=== PATIENT | male | born 1970 | race African-American/Black ===

== ENCOUNTER → 2022-07-13 14:50 | Outpatient (BNVA) | payer MEDICAID, SELFPAY | PROVIDERS: PCP Internal Medicine; Visit Provider Surgery Vascular Surgery | DX: I73.9 Peripheral vascular disease, unspecified (principal) | CPT/HCPCS: 99202 ==

== ENCOUNTER 2022-08-02 06:00 | Day surgery (SDC) | payer MEDICAID, SELFPAY ==
[2022-08-02] VITALS (8 sets, daily range): BP systolic 112–146; BP diastolic 65–85; PULSE 61–73; RESP 17–20; TEMP 36.3–36.5; O2SAT 98–100; BMI 27.8
[2022-08-02] MEDS: 0.9 % Sodium Chloride 1,000 ML 100 ML IVCONT (06:38)
[2022-08-02 06:46] LABS: Basophils Absolute Auto 0.1 X10*3/uL (0.0-0.2); Basophils Percent Auto 0.5 % (0-2); Eosinophils Absolute Auto 0.4 X10*3/uL (0.0-0.4); Hematocrit 42.3 % (42.0-52.0); Hemoglobin 13.9 g/dl (14.0-18.0); Imm Gran Abs Auto 0.05 X10*3/uL (0.00-0.03); Imm Gran Pct Auto 0.4 % (0.0-0.4); Lymphocytes Absolute Auto 3.4 X10*3/uL (1.2-4.9); Lymphocytes Percent Auto 26.9 % (20-40); MANUAL DIFF FLAG NO; Mean Corpuscular HGB Conc 32.9 g/dl (31.0-36.0); Mean Corpuscular Hemoglobin 27.6 pg (27.0-33.0); Mean Corpuscular Volume 83.9 fL (80.0-98.0); Mean Platelet Volume 10.8 fL (9.4-12.4); Monocytes Absolute Auto 0.9 X10*3/uL (0.1-1.2); Monocytes Percent Auto 7.3 % (2-11); Neutrophils Absolute Auto 7.7 x10*3/uL (2.0-8.3); Neutrophils Percent Auto 61.9 % (45-73); Platelet Count 258 X10*3/uL (160-400); Red Blood Count 5.04 X10*6/uL (4.60-5.80); Red Cell Distribution Width 13.4 % (11.0-16.0); White Blood Count 12.5 X10*3/uL (4.8-10.8)
[2022-08-02 06:57] LABS: Blood Urea Nitrogen 15 mg/dL (9-16); Creatinine Clr Calc Pharmacy 115.7; Estimated Glomerular Filt Rate > 60
--- NOTE | 2022-08-02 09:35 | W.PM.OPN ---
Operative Note Operative Note Date of Service: 08/02/22 Narrative: Angiogram report from [facility] Preoperative diagnosis: Atherosclerosis of right lower extremity with activity limiting claudication Postoperative diagnosis: Same Procedure: 1. Ultrasound-guided left common femoral access 2. Aortogram with right lower extremity runoff 3. Right anterior tibial atherectomy and plasty 4. Right popliteal atherectomy and plasty 5. Right SFA angioplasty and stent Surgeon:Fortino Bosch M.D., FACS, RPVI Blasting Contract Miner:None Anesthesia: Local with moderate conscious sedation. Total intraservice moderate sedation time was 69 minutes. I monitored the patient's level of consciousness and physiologic status continuously throughout the procedure. Specimens:none Drains:none Estimated blood loss: Less than 10 ml Implant: Medtronic Ev 3 stent 6 x 40; Medtronic Impact DCB 4 x 60 Indications: Pleasant 52-year-old gentleman with a history of smoking presents with severe activity limiting claudication. This was demonstrated on noninvasive testing. He now presents for endovascular intervention. The patient has signed the informed consent after reviewing risks, complications, benefits, and alternatives previously discussed with the patient. The patient was given the opportunity to ask any additional questions or voice any concerns. All questions were answered to the patient's satisfaction. Procedure in detail: Patient was brought to the angiography suite prior to which a time-out was called for patient identification and site verification. Bilateral groins were prepped and draped in the standard surgical fashion. Under ultrasound guidance left common femoral was punctured with micro puncture needle and wire. Subsequently a precision 4 Stateless sheath was then placed. Bentson wire was advanced to the level of the aorta. 4 Stateless Flush catheter was brought up and parked at the level of the renal arteries. Aortogram was then undertaken. Catheter was brought down to the level of the iliac bifurcation. Iliacs were subsequently imaged. Catheter was then brought in up and over to the right side SFA. Runoff study was then undertaken. This time we recognize there is a total popliteal occlusion. We used an 035 glidewire Advantage to traverse this lesion. We were able to get across and get into the anterior tibial. We confirmed this with a now be cross catheter instilled with contrast. At this time we administered 7000 units a heparin. After 5 minutes of circulation time we placed an up and over 6 Stateless sheath. We then exchanged out for a 5. Spider wire. This was placed into the anterior tibial artery. We then brought in a a 6 Stateless Hawk 1 atherectomy device. Multiple unidirectional passes were taken through the popliteal and on into the anterior tibial artery. Several passes of this had to be undertaken and once again these were all unidirectional passes. Once this was all accomplished we did obtain a fairly good result. There was still some mild residual stenosis. This was then plasty did with a drug coated balloon a 4 x 60. This was brought into position in under 3 minutes and insufflated for a total of 3 minutes in duration. Completion demonstrated spasm of vessels. This was observed for several minutes. Another 1000 units of heparin was then administered. We then turned our attention to Remi's canal. There was a high-grade calcified stenosis there. This was 1st plasty did with a 6 x 20 balloon. The balloon popped. It was subsequently removed. We then brought in a 6 x 40 stent. And once this was deployed we then post plasty this with a 6 x 40 balloon. Once this was all accomplished completion angiogram demonstrated good result with resolution of the vessel spasm. Catheter wire sheath was brought back to the ipsilateral side StarClose closure device was then deployed. Interpretation of films: 1. Ultrasound demonstrates appropriate femoral puncture. Image of which was saved. 2. Aortogram demonstrates appropriate caliber aorta. Minimal disease. Appropriate take-off of the renals. 3. Iliac images demonstrate no significant disease 4. Right Leg Common femoral artery: No significant disease Profundus Femoris: No significant disease Superficial femoral artery: High-grade stenosis at Remi's canal Popliteal artery (p1,p2,p3): Occlusion; postprocedure patent Anterior tibial artery: Occluded proximally postprocedure patent Peroneal artery: Reconstituted via collateral in the proximal quarter Posterior tibial artery: Reconstituted via collaterals in the proximal core Dorsalis pedis/plantar arch: Incomplete Conclusion: 1. Successful atherectomy and plasty of right popliteal and anterior tibial. Successful plasty and stent of right SFA. 2. Anticoagulation status: Patient will require aspirin and Plavix for 6 months. This note is constructed using voice recognition software. While every effort has been made to ensure accuracy, assistant mechanic errors may have been included. Thank you for allowing me to participate in the care of your patient. Yours sincerely, Fortino Bosch MD, FACS, R.P.V.I.
[2022-08-02] MEDS: Clopidogrel Bisulfate 300 MG TABLET PO (09:43)
== END 2022-08-02 11:36 | disposition home or self-care (01) ==
PROVIDERS: PCP Internal Medicine; Visit Provider Surgery Vascular Surgery
DX: I70.211 Atherosclerosis of native arteries of extremities with intermittent claudication, right leg (principal); M79.661 Pain in right lower leg; F17.210 Nicotine dependence, cigarettes, uncomplicated
CPT/HCPCS: 36415; 37225; 37227; 37228; 37229; 76937; 82565; 84520; 85025; 99152; 99153; C1714; C1725; C1760; C1769; C1876; C1884; C1887; J2250; J3010; Q9967

== ENCOUNTER → 2022-08-15 09:41 | Outpatient (BNVA) | payer MEDICAID, SELFPAY | PROVIDERS: PCP Internal Medicine; Visit Provider Surgery Vascular Surgery | DX: I73.9 Peripheral vascular disease, unspecified (principal); Z95.820 Peripheral vascular angioplasty status with implants and grafts | CPT/HCPCS: 99212 ==

== ENCOUNTER 2022-12-27 13:56 | Outpatient (REF) | payer MEDICAID, SELFPAY ==
--- NOTE | ~2022-12-27 | US_ITS ---
EXAMINATION: NONINVASIVE ASSESSMENT OF THE ARTERIES OF BOTH LOWER EXTREMITIES CLINICAL INFORMATION: PVD. COMPARISON: None. TECHNIQUE: Segmental ankle pulse volume recording, pressure measurement at the ankle and ankle brachial indices were obtained of the lower extremity arterial system bilaterally. In addition, bilateral lower extremity duplex ultrasound was performed with velocity measurements and waveform analysis in the common femoral arteries, profunda femoris arteries, proximal mid and distal superficial femoral arteries, popliteal arteries and tibial vessels. This study was performed at rest only. FINDINGS: a) AT REST: 1. The ankle-brachial indices are: Right 0.84 and left 0.87. >0.97-1.25 = normal - no significant arterial disease. 0.75-0.96 = mild peripheral arterial disease. 0.5-0.74 = moderate peripheral arterial disease. <0.50 = severe peripheral arterial disease. 2. Segmental pressure at ankle: Slightly decreased. 3. PVR waveform at ankle: Minimally blunted. 4. Duplex exam. Velocities in cm/sec and phasicity as well as the presence of plaque are reported below. RIGHT LEG: Plaque is present with a patent stent in the distal SFA. Triphasic flow noted in the common femoral and profunda femoris arteries with monophasic flow noted below. Common Femoral: 126 Profunda Femoris: 162 Proximal SFA: 125 Mid SFA: 158 Distal SFA: Stent with velocities ranging from 161-200 with monophasic flow proximally and triphasic flow distally. Popliteal: 77 Tibial: 77 LEFT LEG: Plaque is present with monophasic flow noted throughout suggesting the possibility of inflow disease. Common Femoral: 108 Profunda Femoris: 84 Proximal SFA: 67 Mid SFA: 207 Distal SFA: 81 Popliteal: 62 Tibial: 82 US/US arterial duplex LE BI IMPRESSION: By IAN criteria, there is mild peripheral vascular disease bilaterally. On the right, the SFA stent is patent. Triphasic flow noted in the common femoral and profunda femoris with monophasic flow noted below. On the left, plaque is present with monophasic flow noted throughout suggesting inflow disease. The mid SFA stenosis is seen with velocity acceleration to 207 cm/s. CT angiography may be useful for further evaluation.
== END 2022-12-27 13:57 | disposition home or self-care (01) ==
LOC: HO.US 13:56
PROVIDERS: Visit Provider Surgery Vascular Surgery
DX: I70.213 Atherosclerosis of native arteries of extremities with intermittent claudication, bilateral legs (principal)
CPT/HCPCS: 93923; 93925

== ENCOUNTER → 2023-01-04 09:59 | Outpatient (BNVA) | payer MEDICAID, SELFPAY | PROVIDERS: PCP Internal Medicine; Visit Provider Surgery Vascular Surgery | DX: I73.9 Peripheral vascular disease, unspecified (principal); U07.0 Vaping-related disorder; F17.210 Nicotine dependence, cigarettes, uncomplicated; Z98.890 Other specified postprocedural states | CPT/HCPCS: 99212 ==

== ENCOUNTER 2023-05-08 10:06 | Outpatient (REF) | payer MEDICAID, SELFPAY | END 2023-05-08 10:07 | disposition home or self-care (01) | LOC: HO.US 10:06 | PROVIDERS: PCP Internal Medicine; Visit Provider Surgery Vascular Surgery | DX: I70.213 Atherosclerosis of native arteries of extremities with intermittent claudication, bilateral legs (principal) | CPT/HCPCS: 93923; 93925 ==

== ENCOUNTER 2023-06-12 13:01 | Outpatient (AMB) | payer MEDICAID, SELFPAY ==
--- NOTE | 2023-06-12 13:02 | A.OFFVIS_ITS ---
Intake Intake Visit Reasons: 6 m f/u S/P arterial US 05/08/23 (pain stent area) Intake Note: 6 mo follow up s/p Arterial US 05/08/23 w/ Hx of RIght Angio 08/02/22. Accompanied by: Self / Same As Patient Allergies No Known Allergies Allergy (Verified 06/12/23 13:07) HPI 6 m f/u S/P arterial US 05/08/23 (pain stent area) HPI Details Very pleasant 52-year-old gentleman presents for follow-up with noninvasive arterial testing. He reports that he can ambulate about 15 minutes with no significant difficulty. 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 He now presents for follow-up with noninvasive arterial testing. Of note he is a nondiabetic but continues to vape. [facility] Medical History PAD (peripheral artery disease) Surgical History History of angioplasty (~2021) Social History Patient Tobacco Use Status: Former Tobacco user Quit Date: 08/03/2022 Cigarette Packs Per Day: 0.5 Cigarettes Per Day: 10 Years Smoked: 35 e-Cigarette/Vaping Use: Currently Using Review of Systems Const All systems reviewed & are unremarkable except as noted in HPI and below Reports no additional complaints ENT Reports Normal hearing present Card Denies chest pain, Denies chest pain at rest, Denies chest pain with activity and Denies pedal edema Resp Denies cough GI Denies abdominal pain Musc Denies abnormal gait, Denies muscle cramps and Denies radiating pain into limb Skin/Breast Denies skin ulcer and Denies wounds Neuro Reports Normal hearing present and Denies abnormal gait Psych Reports no additional complaints Physical Exam Const General: cooperative, healthy appearing and comfortable Orientation/consciousness: oriented to person, oriented to place and oriented to time HEENT Head: Yes normal to inspection Neck Neck: Yes normal visual inspection Carotids: no bruits Chest Chest palpation & inspection: normal inspection of the chest Resp Effort & Inspection: normal respiratory effort and able to speak in complete sentences Auscultation: clear to auscultation bilaterally, no crackles, no rales, no rhonchi and no wheezes Cardio Other: Right side palpable DP Rate: regular rate Rhythm: regular rhythm Heart sounds: S1 normal heart sound present and S2 normal heart sound present Bruits: no carotid bruits GI Inspection: Yes normal to inspection Skin Wounds: no wounds Hair: normal Neuro General: oriented to person, oriented to place and oriented to time Cranial nerves: Yes CN's II-XII intact bilaterally and Yes Normal hearing present Cognition (Neuro): normal cognition Motor exam (neuro): 5/5 motor strength present throughout Extrem Other: venous exam: No significant superficial varicosities or spider telangiectasias, minimal edema General: No clubbing, No cyanosis and No edema Psych Appearance: grossly normal Mental Status: mental status grossly normal Speech and movement: Normal speech and movement present Results Reviewed Results Reviewed: Noninvasive arterial testing dated 05/08/2023 demonstrates IAN on the right of 0.97 and on the left of 0.75. Written report and images were reviewed. Assessment & Plan Assessment & Plan (1) PAD (peripheral artery disease): Comment: 08/02/2022 - right SFA angioplasty and stent, right popliteal atherectomy and plasty, right anterior tibial atherectomy and plasty Code(s): I73.9 - Peripheral vascular disease, unspecified Plan: In short patient has stable claudication. I did review the pathophysiology of peripheral vascular disease with the patient. In addition we did discuss routine conservative measures including a healthy diet and the importance of exercise and ambulation. We did discuss risk factor modification. The patient will continue to to follow-up with surveillance follow-up in approximately 1 year. Thank you for allowing us to participate in this patient's care. If there are any questions or concerns please do not hesitate to contact us. Orders: Orders US arterial duplex LE BI 364 Days I73.9 - Peripheral vascular disease, unspecified Coding Level of Care Code Est Pt Level 4 (19142) Diagnoses PAD (peripheral artery disease) I73.9
== END 2023-06-12 13:36 | disposition home or self-care (01) ==
PROVIDERS: PCP Internal Medicine; Visit Provider Surgery Vascular Surgery
DX: I73.9 Peripheral vascular disease, unspecified (principal); Z98.62 Peripheral vascular angioplasty status
CPT/HCPCS: 99213

== ENCOUNTER → 2023-06-12 13:01 | Outpatient (BNVA) | payer MEDICAID, SELFPAY | PROVIDERS: PCP Internal Medicine; Visit Provider Surgery Vascular Surgery ==

== ENCOUNTER 2024-05-20 | Outpatient (REF) | payer MEDICAID, SELFPAY | END 2024-05-20 00:01 | disposition home or self-care (01) | LOC: HO.HHCLNP | PROVIDERS: Visit Provider Family Medicine | DX: Z13.89 Encounter for screening for other disorder (principal) ==

== ENCOUNTER 2024-05-28 08:43 | Outpatient (REF) | payer MEDICAID, SELFPAY ==
[2024-05-28 13:59] LABS: MANUAL DIFF FLAG NO
[2024-05-28 14:08] LABS: Basophils Absolute Auto 0.1 X10*3/uL (0.0-0.2); Basophils Percent Auto 0.6 % (0-2); Eosinophils Absolute Auto 0.3 X10*3/uL (0.0-0.4); Eosinophils Percent Auto 1.9 % (0-4); Hematocrit 46.1 % (42.0-52.0); Hemoglobin 14.7 g/dl (14.0-18.0); Imm Gran Abs Auto 0.08 X10*3/uL (0.00-0.03); Imm Gran Pct Auto 0.6 % (0.0-0.4); Lymphocytes Absolute Auto 2.8 X10*3/uL (1.2-4.9); Lymphocytes Percent Auto 19.2 % (20-40); Mean Corpuscular HGB Conc 31.9 g/dl (31.0-36.0); Mean Corpuscular Hemoglobin 27.4 pg (27.0-33.0); Mean Corpuscular Volume 85.8 fL (80.0-98.0); Mean Platelet Volume 11.3 fL (9.4-12.4); Monocytes Absolute Auto 0.8 X10*3/uL (0.1-1.2); Monocytes Percent Auto 5.4 % (2-11); Neutrophils Absolute Auto 10.5 x10*3/uL (2.0-8.3); Neutrophils Percent Auto 72.3 % (45-73); Platelet Count 262 X10*3/uL (160-400); Red Blood Count 5.37 X10*6/uL (4.60-5.80); Red Cell Distribution Width 14.7 % (11.0-16.0); White Blood Count 14.5 X10*3/uL (4.8-10.8)
[2024-05-28 14:22] LABS: Estimated Average Glucose 111 mg/dL; Hemoglobin A1c % 5.5 % (<6.0)
[2024-05-28 14:45] LABS: Alanine Aminotransferase 14 U/L (0-40); Albumin Level 4.3 g/dL (3.5-5.0); Alkaline Phosphatase 89 U/L (39-117); Anion Gap 12 (12-20); Aspartate Amino Transferase 13 U/L (5-37); Bilirubin Total 0.4 mg/dL (0.0-1.0); Blood Urea Nitrogen 13 mg/dL (9-16); Calcium 9.7 mg/dL (8.4-10.2); Carbon Dioxide 28 mmol/L (22-29); Chloride 106 mmol/L (96-108); Cholesterol 155 mg/dL (<200); Estimated Glomerular Filt Rate > 60; Glucose Random 100 mg/dL (60-115); HDL Cholesterol 36 mg/dL (>40); LDL Cholesterol Calculated 104 mg/dL (<100); Potassium 4.5 mmol/L (3.3-5.1); Sodium 141 mmol/L (135-145); Total Protein 7.1 g/dL (6.5-8.0); Triglycerides 78 mg/dL (<150)
[2024-05-28 14:46] LABS: TSH reflex Free T4 1.13 uIU/mL (0.32-4.0)
== END 2024-05-28 08:44 | disposition home or self-care (01) ==
LOC: HO.CHCLDS 08:43
PROVIDERS: Visit Provider Internal Medicine
DX: I73.9 Peripheral vascular disease, unspecified (principal)
CPT/HCPCS: 36415; 80053; 80061; 83036; 84443; 85025

== ENCOUNTER 2024-06-02 08:49 | Outpatient (REF) | payer MEDICAID, SELFPAY ==
--- NOTE | ~2024-06-02 | US_ITS ---
EXAMINATION: US arterial duplex LE BI US IAN complete CLINICAL INFORMATION: PVD COMPARISON: Bilateral lower extremity arterial duplex 05/08/2023 and 12/27/22 TECHNIQUE: Ankle pulse volume recordings, ankle pressure measurements and ankle brachial indices were obtained of the lower extremity arterial system bilaterally in addition to duplex Doppler techniques with wave form analysis and measurement of velocities in the common femoral, profunda femoral, superficial femoral, popliteal, tibial and peroneal arteries. The study was performed only at rest. FINDINGS: RIGHT LE. THE RIGHT ANKLE-BRACHIAL INDEX IS: 1.04, previously 0.97 2. SEGMENTAL PRESSURES (mmHg): Ankle: PT 216, DP 211 3. PVR WAVEFORMS: Ankle: Abnormal 4. DIRECT DUPLEX: Common femoral artery: 167 cm/s, monophasic, mild stenosis Profunda femoris artery: 101 cm/s, biphasic Superficial femoral artery (proximal): 131 cm/s, biphasic, mild stenosis Superficial femoral artery (mid): 171 cm/s, biphasic, mild stenosis Right distal superficial femoral artery stent: [place] artery proximal to: 271 cm/sec, biphasic Proximal stent: 235 cm/sec, monophasic Mid stent: 263 cm/sec, monophasic Distal stent: 156 cm/sec, monophasic [place] artery distal to: 79 cm/sec, monophasic Popliteal artery: 77 cm/s, monophasic Posterior tibial artery: 49 cm/s, monophasic Anterior tibial artery: 90 cm/sec, monophasic Peroneal artery: 92 cm/s, monophasic Dorsalis pedis artery: 73 cm/sec, monophasic LEFT LE. THE LEFT ANKLE-BRACHIAL INDEX IS: 1.06, previously 0.75 2. SEGMENTAL PRESSURES: Ankle: PT 220, DP 218 3. PVR WAVEFORMS: Ankle: Abnormal 4. DIRECT DUPLEX: Common femoral artery: 97 cm/s, triphasic Profunda femoris artery: 104 cm/s, biphasic Superficial femoral artery (proximal): 52 cm/s, monophasic Superficial femoral artery (mid): 27 cm/s, monophasic Superficial femoral artery (distal): 51 cm/s, monophasic Popliteal artery: 37 cm/s, monophasic Posterior tibial artery: 35 cm/s, monophasic Peroneal artery: 33 cm/s, biphasic Anterior tibial artery: 27 cm/s, monophasic Dorsalis pedis artery: 44 cm/s, monophasic US/US IAN complete IMPRESSION: 1. Bilateral IAN measurements are unreliable as all pressure measurements were >200mmHg. 2. Right leg: Elevated velocity within the proximal right superficial femoral artery stent with monophasic flow throughout the right lower extremity. 3. Left leg: Monophasic flow from the SFA and distally, as before.
--- NOTE | ~2024-06-02 | US_ITS ---
EXAMINATION: US arterial duplex LE BI US IAN complete CLINICAL INFORMATION: PVD COMPARISON: Bilateral lower extremity arterial duplex 05/08/2023 and 12/27/22 TECHNIQUE: Ankle pulse volume recordings, ankle pressure measurements and ankle brachial indices were obtained of the lower extremity arterial system bilaterally in addition to duplex Doppler techniques with wave form analysis and measurement of velocities in the common femoral, profunda femoral, superficial femoral, popliteal, tibial and peroneal arteries. The study was performed only at rest. FINDINGS: RIGHT LE. THE RIGHT ANKLE-BRACHIAL INDEX IS: 1.04, previously 0.97 2. SEGMENTAL PRESSURES (mmHg): Ankle: PT 216, DP 211 3. PVR WAVEFORMS: Ankle: Abnormal 4. DIRECT DUPLEX: Common femoral artery: 167 cm/s, monophasic, mild stenosis Profunda femoris artery: 101 cm/s, biphasic Superficial femoral artery (proximal): 131 cm/s, biphasic, mild stenosis Superficial femoral artery (mid): 171 cm/s, biphasic, mild stenosis Right distal superficial femoral artery stent: [place] artery proximal to: 271 cm/sec, biphasic Proximal stent: 235 cm/sec, monophasic Mid stent: 263 cm/sec, monophasic Distal stent: 156 cm/sec, monophasic [place] artery distal to: 79 cm/sec, monophasic Popliteal artery: 77 cm/s, monophasic Posterior tibial artery: 49 cm/s, monophasic Anterior tibial artery: 90 cm/sec, monophasic Peroneal artery: 92 cm/s, monophasic Dorsalis pedis artery: 73 cm/sec, monophasic LEFT LE. THE LEFT ANKLE-BRACHIAL INDEX IS: 1.06, previously 0.75 2. SEGMENTAL PRESSURES: Ankle: PT 220, DP 218 3. PVR WAVEFORMS: Ankle: Abnormal 4. DIRECT DUPLEX: Common femoral artery: 97 cm/s, triphasic Profunda femoris artery: 104 cm/s, biphasic Superficial femoral artery (proximal): 52 cm/s, monophasic Superficial femoral artery (mid): 27 cm/s, monophasic Superficial femoral artery (distal): 51 cm/s, monophasic Popliteal artery: 37 cm/s, monophasic Posterior tibial artery: 35 cm/s, monophasic Peroneal artery: 33 cm/s, biphasic Anterior tibial artery: 27 cm/s, monophasic Dorsalis pedis artery: 44 cm/s, monophasic US/US arterial duplex LE BI IMPRESSION: 1. Bilateral IAN measurements are unreliable as all pressure measurements were >200mmHg. 2. Right leg: Elevated velocity within the proximal right superficial femoral artery stent with monophasic flow throughout the right lower extremity. 3. Left leg: Monophasic flow from the SFA and distally, as before.
== END 2024-06-02 08:50 | disposition home or self-care (01) ==
LOC: HO.US 08:49
PROVIDERS: PCP Internal Medicine; Visit Provider Surgery Vascular Surgery
DX: I73.9 Peripheral vascular disease, unspecified (principal)
CPT/HCPCS: 93923; 93925

== ENCOUNTER 2024-06-10 09:31 | Outpatient (AMB) | payer MEDICAID, SELFPAY ==
--- NOTE | 2024-06-10 09:33 | MHC.OFFVIS ---
Intake Visit Reasons: follow up s/p Arterial US 06/02/24 Intake Note: 1 yr follow up Arterial US 06/02/24 w/ Hx of Right LE Angio 08/02/22, had a ingrown toenail procedure 2 weeks ago. PCP is concerned of arterial status. Pt states dark discoloration of Right great toe and feels pressure in Right toe Accompanied by: Spouse Allergies No Known Allergies Allergy (Verified 06/10/24 09:41) HPI HPI follow up s/p Arterial US 06/02/24: Details: Pleasant 53-year-old gentleman presents for follow-up with arterial ultrasound. 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 He has a prior history nearly 2 years ago of right lower extremity endovascular intervention. He reports he is doing fairly well but does have some pain issues. Continues to smoke about a half a pack per day. And he sees Podiatry for foot issues. He now presents for follow-up with noninvasive testing. [facility] Medical History PAD (peripheral artery disease) Surgical History History of angioplasty (~2021) Social History Patient Tobacco Use Status: Former Tobacco user Cigarette Packs Per Day: 0.5 Cigarettes Per Day: 10 Years Smoked: 35 e-Cigarette/Vaping Use: Currently Using Review of Systems Const All systems reviewed & are unremarkable except as noted in HPI and below Reports no additional complaints ENT Reports Normal hearing present Card Denies chest pain, Denies chest pain at rest, Denies chest pain with activity and Denies pedal edema Resp Denies cough GI Denies abdominal pain Musc Denies abnormal gait, Denies muscle cramps and Denies radiating pain into limb Skin/Breast Denies skin ulcer and Denies wounds Neuro Reports Normal hearing present and Denies abnormal gait Psych Reports no additional complaints Physical Exam Const General: cooperative, healthy appearing and comfortable Orientation/consciousness: oriented to person, oriented to place and oriented to time HEENT Head: Yes normal to inspection Neck Neck: Yes normal visual inspection Carotids: no bruits Chest Chest palpation & inspection: normal inspection of the chest Resp Effort & Inspection: normal respiratory effort and able to speak in complete sentences Auscultation: clear to auscultation bilaterally, no crackles, no rales, no rhonchi and no wheezes Cardio Other: Palpable DP pulses bilaterally Rate: regular rate Rhythm: regular rhythm Heart sounds: S1 normal heart sound present and S2 normal heart sound present Bruits: no carotid bruits Peripheral pulses: Peripheral pulses 2+ throughout GI Inspection: Yes normal to inspection Skin Wounds: no wounds Hair: normal Neuro General: oriented to person, oriented to place and oriented to time Cranial nerves: Yes CN's II-XII intact bilaterally and Yes Normal hearing present Cognition (Neuro): normal cognition Motor exam (neuro): 5/5 motor strength present throughout Extrem Other: venous exam: No significant superficial varicosities or spider telangiectasias, minimal edema General: No clubbing, No cyanosis and No edema Psych Appearance: grossly normal Mental Status: mental status grossly normal Speech and movement: Normal speech and movement present Results Reviewed Results Reviewed: Noninvasive testing dated 06/02/2024 demonstrates IAN on the right of 1.04 and on the left of 1.06 written report and images were reviewed. Assessment & Plan Assessment & Plan (1) PAD (peripheral artery disease): Comment: 08/02/2022 - right SFA angioplasty and stent, right popliteal atherectomy and plasty, right anterior tibial atherectomy and plasty Code(s): I73.9 - Peripheral vascular disease, unspecified Category: Medical Plan: In short patient has stable claudication. I did review the pathophysiology of peripheral vascular disease with the patient. In addition we did discuss routine conservative measures including a healthy diet and the importance of exercise and ambulation. We did discuss risk factor modification. The patient will continue to to follow-up with surveillance follow-up in approximately one year. Thank you for allowing us to participate in this patient's care. If there are any questions or concerns please do not hesitate to contact us. Orders: Orders US arterial duplex LE BI 1 Year I73.9 - Peripheral vascular disease, unspecified Coding Level of Care Code Est Pt Level 4 (38515) Diagnoses PAD (peripheral artery disease) I73.9
== END 2024-06-10 10:27 | disposition home or self-care (01) ==
PROVIDERS: PCP Internal Medicine; Referring Provider Internal Medicine; Visit Provider Surgery Vascular Surgery
DX: I73.9 Peripheral vascular disease, unspecified (principal)
CPT/HCPCS: 99214

== ENCOUNTER → 2024-06-10 09:31 | Outpatient (BNVA) | payer MEDICAID, SELFPAY | PROVIDERS: PCP Internal Medicine; Visit Provider Surgery Vascular Surgery | DX: I73.9 Peripheral vascular disease, unspecified (principal) | CPT/HCPCS: 99212 ==

== ENCOUNTER 2024-11-25 15:31 | Outpatient (REF) | payer MEDICAID, SELFPAY ==
--- NOTE | ~2024-11-25 | US_ITS ---
EXAMINATION: US EXTRACRANIAL CAROTID DUPLEX, BILATERAL CLINICAL INFORMATION: History peripheral artery disease, smoker, evaluate for carotid stenosis. COMPARISON: None available. TECHNIQUE: Real-time ultrasound and Doppler techniques (integrating B-mode 2-D vascular images, Doppler spectral analysis and color-flow Doppler imaging) were utilized to interrogate the extracranial carotid arteries, the vertebral arteries and proximal subclavian arteries bilaterally. The degree of stenosis is determined by criteria similar to NASCET. FINDINGS: Right Side: 1. There is mild atherosclerotic plaque seen in the bifurcation/proximal ICA region. 2. The common carotid artery PSV proximally is 101 cm/s and distally 96.9 cm/s. 3. The proximal internal carotid artery velocities are 78.6 cm/s systolic and 29 cm/s diastolic. 4. The proximal external carotid artery PSV is 90.1 cm/s. 5. The vertebral artery shows antegrade flow, with peak systolic velocity of 54.4 cm/s. 6. The subclavian artery waveforms are normal.. Left Side: 1. There is mild atherosclerotic plaque seen in the bifurcation/proximal ICA region. 2. The common carotid artery PSV proximally is 123 cm/s and distally 104 cm/s. 3. The proximal internal carotid artery velocities are 113 cm/s systolic and 43 cm/s diastolic. 4. The proximal external carotid artery PSV is 118 cm/s. 5. The vertebral artery shows antegrade flow, with peak systolic velocity of 50.4 cm/s. 6. The subclavian artery waveforms are normal. US/US carotid duplex BI IMPRESSION: 1. RIGHT: Minimal, non-hemodynamically significant stenosis of the proximal right internal carotid artery corresponding to a 0-49% stenosis by velocity criteria. 2. LEFT: Minimal, non-hemodynamically significant stenosis of the proximal left internal carotid artery corresponding to a 0-49% stenosis by velocity criteria. 3. Normal antegrade flow in both vertebral arteries. Electronically signed by: Sacha Horta MD 11/26/2024 12:43 PM [facility]
== END 2024-11-25 15:32 | disposition home or self-care (01) ==
LOC: HO.US 15:31
PROVIDERS: PCP Internal Medicine; Visit Provider Surgery Vascular Surgery
DX: I65.23 Occlusion and stenosis of bilateral carotid arteries (principal)
CPT/HCPCS: 93880

== ENCOUNTER → 2024-11-25 15:35 | Outpatient (BNV) | payer MEDICAID, SELFPAY | PROVIDERS: PCP Internal Medicine; Visit Provider Radiology Diagnostic Radiology | DX: I73.9 Peripheral vascular disease, unspecified (principal) | CPT/HCPCS: 93880 ==